=== PATIENT | male | born 1995 | race Caucasian/White ===

== ENCOUNTER → 2020-11-19 12:31 | Outpatient (BNVA) | payer OTHER, SELFPAY | PROVIDERS: Family Provider Pediatrics; Visit Provider Emergency Medicine | DX: R68.82 Decreased libido (principal); R06.83 Snoring | CPT/HCPCS: 80053; 84403; 84443; 85025 ==

== ENCOUNTER → 2022-06-26 11:15 | Outpatient (BNVA) | payer BC, SELFPAY | PROVIDERS: Family Provider Pediatrics; PCP Nurse Practitioner Family; Visit Provider Urology | DX: R68.82 Decreased libido (principal); R79.89 Other specified abnormal findings of blood chemistry | CPT/HCPCS: 36415; 80503; 84403; 89320 ==